=== PATIENT | female | born 1995 | race Caucasian/White ===

== ENCOUNTER 2018-03-14 12:18 | Emergency (ER) | payer OTHER ==
[2018-03-14] MEDS ORDERED: ONDANSETRON 4 MG ODT BU ONE (12:21)
[2018-03-14] MEDS ORDERED: SUMATRIPTAN SUCCINATE 6 MG/0.5 ML SOL SC ONE ×2 (12:21→12:22)
[2018-03-14] MEDS ORDERED: ONDANSETRON 4 MG ODT ONE (12:22)
[2018-03-14 12:34] VITALS: TEMP 98.4
[2018-03-14] MEDS ORDERED: APAP/HYDROCODONE 325/5 TAB PO ONE (12:39)
[2018-03-14] MEDS ORDERED: KETOROLAC TROMETHAMINE 30 MG/ML SOL IV ONE (12:54)
[2018-03-14] MEDS ORDERED: PROMETHAZINE HYDROCHLORIDE 25 MG/ML SOL IV ONE (12:54)
[2018-03-14] MEDS ORDERED: KETOROLAC TROMETHAMINE 30 MG/ML SOL ONE (12:59)
[2018-03-14] MEDS ORDERED: PROMETHAZINE HYDROCHLORIDE 25 MG/ML SOL ONE (13:00)
[2018-03-14] MEDS ORDERED: SODIUM CHLORIDE 0.9% 1000 ML SOL IV SCH (13:00)
[2018-03-14 13:33] VITALS: O2SAT 92
[2018-03-14 14:44] VITALS: BP 126/83; PULSE 59; RESP 20
== END 2018-03-14 15:25 | disposition home or self-care (01) | DRG 103 ==
LOC: ED 12:18
DX: G43.909 Migraine, unspecified, not intractable, without status migrainosus (principal)
CPT/HCPCS: 96365; 96372; 96374; 96375; 99283; 99284; J1885; J2550; J3030; A9270-GY